=== PATIENT | female | born 1995 | race African-American/Black ===

== ENCOUNTER 2021-11-16 05:44 | Inpatient (IN) | payer OTHER ==
[~2021-11-16] VITALS: Ht 167.6 cm; Wt 112.5 kg
[2021-11-16] MEDS ORDERED: LIDOCAINE HCL 1% 20ML VIAL (Pyxis) INJ INFIL SCH (07:00)
[2021-11-16] MEDS ORDERED: DEXT 5%/LACTATED RINGERS 1,000 ML IV SCH (07:00)
[2021-11-16] MEDS ORDERED: DEXT 5%/LR + PITOCIN 20UNITS/L 1,000 ML IV SCH ×2 (07:00→12:00)
[2021-11-16] MEDS ORDERED: RHO(D) IMMUNE GLOBULIN 300 MCG/SYR IM ONE (07:00)
[2021-11-16 07:11] LABS: BASOPHILS % 0.4 % (0.0-2.0); EOSINOPHILS % 0.2 % (0.0-5.0); HEMATOCRIT. 32.3 % (36.0-48.0); HEMOGLOBIN. 10.6 g/dL (12.0-16.0); MEAN CORPUSCULAR HEMOGLOBIN 26.5 pg (28.0-32.0); MEAN CORPUSCULAR VOLUME 80.5 fL (81.0-99.0); MEAN PLATELET VOLUME 8.5 fl (7.4-10.4); MONOCYTES % 5.1 % (2.0-8.0); NEUTROPHILS % 80.3 % (40.0-76.0); PLATELET 290 x1000/uL (130-400); RED BLOOD CELL COUNT 4.01 mill/uL (4.2-5.4)
[2021-11-16] MEDS: BUTORPHANOL TARTRATE 2 MG/ML VIAL IV PRN ×2 (07:20→15:42)
[2021-11-16 07:23] LABS: INR 0.9; PARTIAL THROMBOPLASTIN TIME 27.1 sec (23.4-31.0); PROTHROMBIN TIME 9.8 sec (9.6-11.0)
[2021-11-16] MEDS ORDERED: PENICILLIN G POTASSIUM 5 MMU in DEXT 5% WATER 100 ML IV SCH (07:30)
[2021-11-16 07:45] LABS: HEPATITIS B SURFACE ANTIGEN NEGATIVE
[2021-11-16] MEDS ORDERED: ROPIVACAINE HCL/PF EPIDURAL 200 ML EP SCH (07:45)
[2021-11-16] MEDS: LACTATED RINGERS 1,000 ML IV SCH ×3 (07:51→16:43)
[2021-11-16] MEDS ORDERED: ROPIVACAINE HCL/PF EPIDURAL 200 ML EPI SCH ×2 (08:00→22:30)
[2021-11-16] MEDS ORDERED: LIDOCAINE HCL 2%/EPINEPHRINE 1:100,000 20 ML VIAL INFIL ONE ×2 (08:27→08:51)
[2021-11-16] MEDS: PENICILLIN G POTASSIUM 2.5 MMU in DEXTROSE 5% WATER 50 ML IV SCH ×2 (16:40→16:41)
[2021-11-16] MEDS ORDERED: MORPHINE SULFATE/PF 1MG/ML 10ML AMP ONE (22:57)
[2021-11-16] MEDS ORDERED: ONDANSETRON HCL 4MG/2ML INJ ONE (23:28)
[2021-11-16] MEDS ORDERED: OXYTOCIN 10 UNITS/ML 1ML ONE (23:28)
[2021-11-16] MEDS ORDERED: DEXAMETHASONE 4MG/ML 1ML VIAL ONE (23:28)
[2021-11-16] MEDS ORDERED: CEFAZOLIN SODIUM 1000MG/VIAL ONE (23:28)
[2021-11-16] MEDS ORDERED: NALOXONE HCL 0.4 MG/ML 1ML VIAL IV PRN (23:45)
[2021-11-17] MEDS ORDERED: DIPHENHYDRAMINE 25MG CAPSULE PO PRN (00:15)
[2021-11-17] MEDS ORDERED: HEMORRHOIDAL SUPP PR PRN (00:15)
[2021-11-17] MEDS ORDERED: BISACODYL 10MG SUPP PR PRN (00:15)
[2021-11-17] MEDS ORDERED: DEXT 5%/LR + PITOCIN 20UNITS/L 1,000 ML IV SCH (00:15)
[2021-11-17] MEDS ORDERED: ONDANSETRON HCL 4MG/2ML INJ IV PRN (00:15)
[2021-11-17] MEDS ORDERED: LANOLIN OINT 7GM TUBE TOP PRN (00:15)
[2021-11-17] MEDS ORDERED: IBUPROFEN 400MG TABLET PO PRN (00:15)
[2021-11-17] MEDS ORDERED: RHO(D) IMMUNE GLOBULIN 300 MCG/SYR IM PRN (00:15)
[2021-11-17 02:30] VITALS: BP 125/75
[2021-11-17 03:57] LABS: CLARITY URINE CLEAR (CLEAR); COLOR URINE YELLOW (YELLOW); KETONES URINE 1+ (NEGATIVE); LEUKOCYTE ESTERASE URINE TRACE (NEGATIVE); NITRITE URINE NEGATIVE (NEGATIVE); OCCULT BLOOD URINE 2+ (NEGATIVE); PH URINE 6.5 (4.5-8.0); PROTEIN URINE NEGATIVE (NEGATIVE); SPECIFIC GRAVITY URINE 1.005 (1.005-1.030); UROBILINOGEN URINE 0.2 E.U./dL (0.2-1.0)
[2021-11-17 04:00] VITALS: BP 132/65
[2021-11-17 04:13] LABS: *BARBITURATES SCREEN URINE NEGATIVE (NEGATIVE); *BENZODIAZEPINES SCREEN URINE NEGATIVE (NEGATIVE); *COCAINE SCREEN URINE NEGATIVE (NEGATIVE); CANNABINOID URINE SCREEN NEGATIVE (NEGATIVE); METHADONE URINE SCREEN NEGATIVE (NEGATIVE); OPIATES URINE SCREEN NEGATIVE (NEGATIVE); PHENCYCLIDINE URINE SCREEN NEGATIVE (NEGATIVE)
[2021-11-17 04:15] LABS: *AMPHETAMINES SCREEN URINE NEGATIVE (NEGATIVE)
[2021-11-17] MEDS: KETOROLAC 30MG/ML VIAL IV PRN ×2 (06:05→13:06)
[2021-11-17 07:30] VITALS: BP 105/59
[2021-11-17] MEDS: SIMETHICONE 80MG TABLET CHEW PO SCH ×4 (09:35→22:59)
[2021-11-17] MEDS: MAGNESIUM/ALUMINUM HYDROXIDE/SIMETHICONE 30ML UDC PO SCH ×4 (09:36→23:00)
[2021-11-17] MEDS: PRENATAL VIT/FE FUMARATE/FA TABLET PO SCH (09:36)
[2021-11-17 09:54] LABS: HEMATOCRIT. 32.9 % (36.0-48.0); HEMOGLOBIN. 9.6 g/dL (12.0-16.0); MEAN PLATELET VOLUME 8.1 fl (7.4-10.4); PLATELET 258 x1000/uL (130-400)
[2021-11-17 12:16] LABS: PLATELET ESTIMATE NORMAL
[2021-11-17 16:00] VITALS: BP 103/50
[2021-11-17 20:00] VITALS: BP 108/61
[2021-11-17] MEDS: IBUPROFEN 800MG TABLET PO PRN (20:08)
[2021-11-17] MEDS: DOCUSATE SODIUM 100MG CAPSULE PO SCH (23:00)
[2021-11-17] MEDS: ACETAMINOPHEN WITH CODEINE 300/30MG TABLET PO PRN (23:10)
[2021-11-18 04:00] VITALS: BP 121/56
[2021-11-18] MEDS: IBUPROFEN 800MG TABLET PO PRN ×2 (05:31→15:22)
[2021-11-18 06:44] LABS: BASOPHILS % 0.2 % (0.0-2.0); EOSINOPHILS % 0.3 % (0.0-5.0); HEMOGLOBIN. 8.1 g/dL (12.0-16.0); LYMPHOCYTES % 17.6 % (20.0-50.0); MEAN CORPUSCULAR HEMOGLOBIN 26.5 pg (28.0-32.0); MEAN CORPUSCULAR VOLUME 81.5 fL (81.0-99.0); MEAN PLATELET VOLUME 7.9 fl (7.4-10.4); MONOCYTES % 7.3 % (2.0-8.0); NEUTROPHILS % 74.6 % (40.0-76.0); PLATELET 241 x1000/uL (130-400); RED BLOOD CELL COUNT 3.07 mill/uL (4.2-5.4); RED CELL DISTRIBUTION WIDTH 16.7 % (11.6-14.6)
[2021-11-18 07:30] VITALS: BP 114/61
[2021-11-18] MEDS: MAGNESIUM/ALUMINUM HYDROXIDE/SIMETHICONE 30ML UDC PO SCH ×4 (08:04→21:06)
[2021-11-18] MEDS: PRENATAL VIT/FE FUMARATE/FA TABLET PO SCH (08:05)
[2021-11-18] MEDS: SIMETHICONE 80MG TABLET CHEW PO SCH ×4 (08:05→21:06)
[2021-11-18] MEDS: FERROUS SULFATE 325MG TABLET PO SCH ×3 (08:05→17:56)
[2021-11-18 16:50] VITALS: BP 114/63
[2021-11-18 19:45] VITALS: BP 122/71
[2021-11-18] MEDS: DOCUSATE SODIUM 100MG CAPSULE PO SCH (21:05)
[2021-11-19] MEDS: IBUPROFEN 800MG TABLET PO PRN ×2 (00:11→06:18)
[2021-11-19 04:00] VITALS: BP 116/58
[2021-11-19] MEDS ORDERED: IBUP-2030 PO (06:51)
[2021-11-19] MEDS ORDERED: FERR-63 PO (06:51)
[2021-11-19 07:35] VITALS: BP 113/67
[2021-11-19] MEDS: FERROUS SULFATE 325MG TABLET PO SCH (08:33)
[2021-11-19] MEDS: SIMETHICONE 80MG TABLET CHEW PO SCH (08:33)
[2021-11-19] MEDS: PRENATAL VIT/FE FUMARATE/FA TABLET PO SCH (08:33)
[2021-11-19] MEDS: ACETAMINOPHEN WITH CODEINE 300/30MG TABLET PO PRN (08:34)
[2021-11-19] MEDS: MAGNESIUM/ALUMINUM HYDROXIDE/SIMETHICONE 30ML UDC PO SCH (08:34)
== END 2021-11-19 12:15 | disposition home or self-care (01) | DRG 540 ==
LOC: 8 EST LDRP 05:44 → OBSVTOIN 05:44 → 8 EST LDRP 07:05 → 8EST 11-17 03:34
PROVIDERS: ADMIT Obstetrics & Gynecology; ATTEND Obstetrics & Gynecology
PROC: 10D00Z1 Extraction of Products of Conception, Low, Open Approach (ICD-10-PCS; principal; 2021-11-16)
DX: O48.0 Post-term pregnancy (principal); O99.12 Other diseases of the blood and blood-forming organs and certain disorders involving the immune mechanism complicating childbirth; O99.214 Obesity complicating childbirth; O62.2 Other uterine inertia; D72.829 Elevated white blood cell count, unspecified; O90.81 Anemia of the puerperium; Z20.822 Contact with and (suspected) exposure to COVID-19; D64.9 Anemia, unspecified; Z37.0 Single live birth; Z3A.41 41 weeks gestation of pregnancy
CPT/HCPCS: 36415; 80305; 81003; 85025; 86592; 86703; 86762; 86850; 86900; 87340; 87426; 88307; 99281; J0595; J0690; J1100; J1885; J2274; J2405; J2540; J2590; J2795; J3490; J7060; J7120; J7121